=== PATIENT | male | born 2000 | race Two or more races ===

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

== ENCOUNTER 2020-04-06 17:05 | Emergency (ER) | payer MEDICAID, OTHER ==
[~2020-04-06] VITALS: Ht 180.3 cm; Wt 76.2 kg
[~2020-04-06 17:05] MED LIST: ALBUTEROL SULF8.5 G1 INH; BENADRYL25 MG ORAL; DEPAKOTE250 MG PO; PROAIR HFA8.5 GM INH; PROPRANOLOL HCL10 MG ORAL; RISPERDAL2 MG ORAL; ZYPREXA2.5 MG ORAL
--- NOTE | 2020-04-06 17:24 | Emergency Room Report ---
History of Present Illness General Chief Complaint: Skin Rash/Abscess Source: Patient Present Illness HPI Patient is brought by EMS for allergic reaction. He was seen a week ago for hives. He was told they would not come back but they have returned. He denies any throat swelling, wheezing, nausea, vomiting or diarrhea. They appeared on his neck before but now they are all over his body. He was out in the sun today and this seemed to worsen the rash. Recent occasional itching in genitals. Requests send for STD but doesn't feel he has this. Denies dysuria. No fevers, chills, sore throat, chest pain, palpitations, nausea, vomiting, diarrhea, abdominal pain, shortness of breath, joint pain, depression, anxiety, visual changes, dizziness, headache. Was seen for Bath salt "OD" December 2018. In the past he has taken Risperdal and Zyprexa. Allergies: Coded Allergies: No Known Allergies (Unverified , 12/17/18) COVID-19 Screening Contact w/high risk pt: No Experienced COVID-19 symptoms?: No COVID-19 Testing performed CAR COUPLER: No Patient History Past Medical History: see triage record, old chart reviewed Social History: Reports: drug use; Denies: smoking, alcohol use Social History Narrative Living in a post incarceration situation Reviewed Nursing Documentation: PMH: Agreed; PSxH: Agreed Nursing Documentation-PMH Past Medical History: No History, Except For Hx Hypertension: Yes Hx Asthma: Yes History Of Psychiatric Problem: Yes - bipolar Review of Systems All Other Systems: negative except mentioned in HPI Physical Exam Vital Signs Date Time Temp Pulse Resp B/P (MAP) Pulse Ox O2 Delivery O2 Flow Rate FiO2 04/06/20 16:58 98.1 116 14 145/98 (114) 100 Room Air Sp02 EP Interpretation: reviewed, normal General Appearance: well appearing, no apparent distress, GCS 15 Head: normocephalic Eyes: bilateral eye normal inspection, bilateral eye PERRL, bilateral eye EOMI ENT: normal pharynx, no angioedema, moist mucus membranes Neck: supple Respiratory: lungs clear, normal breath sounds Cardiovascular #1: regular rate, rhythm Cardiovascular #2: 2+ radial (R) Gastrointestinal: normal inspection, normal bowel sounds, non tender, no mass, non-distended Musculoskeletal: back normal, normal range of motion, gait/station normal Neurologic: alert, oriented x3, grossly normal Psychiatric: mood/affect normal Skin: warm/dry, other - Urticarial rash Medical Decision Making Diagnostic Impression: Primary Impression: Urticaria ER Course Patient presents with alleged allergic reaction with hives. He was treated with Benadryl in the field. Differential includes allergic reaction, heat rash , hives, anaphylaxis, drug reaction amongst others. No signs or symptoms of anaphylaxis at this time. Patient evaluated with EKG. Patient will be treated with IV Solu-Medrol and IM epinephrine. EKG normal. Patient improved after treatment. Rash remarkedly improved. Discussed diagnosis and treatment plan with patient. Patient stable for outpatient observation and treatment. EKG Diagnostic Results Rate: normal Rhythm: NSR ST Segments: no acute changes - Right axis deviation Rhythm Strip Diag. Results EP Interpretation: yes Rhythm: NSR, no PVC's, no ectopy Last Vital Signs Date Time Temp Pulse Resp B/P (MAP) Pulse Ox O2 Delivery O2 Flow Rate FiO2 04/06/20 20:10 98.0 85 18 124/72 98 Room Air Status: improved Disposition: HOME, SELF-CARE Condition: Improved Scripts Diphenhydramine Hcl* (BENADRYL*) 25 Mg Capsule 25 MG ORAL Q6H PRN for Itching, #20 CAP Prov: Franklin Driscoll MD 04/06/20 Prednisone* (PREDNISONE*) 20 Mg Tablet 40 MG ORAL DAILY, #10 TAB Prov: Franklin Driscoll MD 04/06/20 Franklin Driscoll MD Apr 06, 2020 17:24
[2020-04-06] MEDS ORDERED: Solu-MEDROL 125mg Inj IVP ONE (17:30)
[2020-04-06] MEDS ORDERED: EPINEPHrine 1mg/1ml Amp IM ONE (17:30)
--- NOTE | 2020-04-06 18:00 | NUR ---
ED Nurse Note:pt. was BIBA from home with allergic reaction- hives on his abdominal area, VSS, pt. is A/Ox4, ambulatory, meds were given
[2020-04-06 18:10] VITALS: BP 145/98
--- NOTE | 2020-04-06 18:20 | NUR ---
ED Nurse Note:urine sent to labs
[2020-04-06 18:29] LABS: APPEARANCE,URINE CLEAR; BILIRUBIN, URINE NEGATIVE (NEGATIVE); COLOR,URINE PALE YELLOW; GLUCOSE, URINE (UA) NEGATIVE (NEGATIVE); KETONES,URINE NEGATIVE (NEGATIVE); LEUKOCYTE ESTERASE ,URINE NEGATIVE (NEGATIVE); NITRITE,URINE NEGATIVE (NEGATIVE); PH,URINE 7 (4.5-8.0); PROTEIN,URINE NEGATIVE (NEGATIVE); UROBILINOGEN,URINE NORMAL MG/DL (0.0-1.0)
[2020-04-06] MEDS ORDERED: BENADRYL25 MG ORAL (18:37)
[2020-04-06] MEDS ORDERED: PREDNISONE20 MG ORAL (18:37)
--- NOTE | 2020-04-06 19:05 | NUR ---
ED Nurse Note: Report received from JORDY MILLER
--- NOTE | 2020-04-06 19:45 | NUR ---
ER DISCHARGE NOTE: Patient is cleared to be discharged per ERMD, pt is aox4, on room air, with stable vital signs. pt was given dc and prescription instructions, pt was able to verbalize understanding, pt id band and iv site removed without complications. pt is able to ambulate with steady gait. pt took all belongings. pt was picked up by a hearing officer going home.
[2020-04-06 20:10] VITALS: BP 124/72
== END 2020-04-06 19:45 | disposition home or self-care (01) ==
LOC: EDBD 17:05 → EMR 18:46
DX: L50.9 Urticaria, unspecified (principal); I10 Essential (primary) hypertension; F31.9 Bipolar disorder, unspecified
CPT/HCPCS: 81003; 87491; 87590; 93005; 96372; 96374; J0171; J2930; Z7502; 99284